=== PATIENT | female | born 1950 | race Hispanic/Latino ===

== ENCOUNTER 2023-04-24 08:15 | Emergency (ER) | payer MEDICARE ==
[~2023-04-24] VITALS: Ht 167.6 cm; Wt 84.4 kg
[~2023-04-24 08:15] MED LIST: AMIODARONE HCL200 MG PO; ATORVASTATIN CA20 MG PO; KEFLEX125 MG/5 M PO; METOPROLOL TART25 MG PO; OMEPRAZOLE40 MG PO
[2023-04-24] MEDS ORDERED: SODIUM CHLORIDE 0.9% 500ML 500 ML ONE (08:33)
[2023-04-24] MEDS: METOPROLOL TARTRATE INJ 1 MG/ML VIAL IV ONE (08:44)
[2023-04-24] MEDS: SODIUM CHLORIDE 0.9% 500ML 500 ML IV ONE (08:45)
[2023-04-24 08:53] LABS: BASOPHILS # (AUTO) 0.1 (0.0-0.1); BASOPHILS % 1.7 % (0.0-1.0); EOSINOPHILS # (AUTO) 0.3 (0.0-0.4); EOSINOPHILS % 4.8 % (0.0-6.0); HEMATOCRIT 37.5 % (34.2-44.1); LYMPHOCYTES # (AUTO) 2.9 (1.0-3.2); LYMPHOCYTES % 42.6 % (18.0-39.1); MEAN CORPUSCULAR HEMOGLOBIN 28.5 pg (28-32); MEAN CORPUSCULAR VOLUME 89.1 fL (81-99); MONOCYTES # (AUTO) 0.6 (0.2-0.8); MONOCYTES % 8.7 % (4.4-11.3); NEUTROPHILS # (AUTO) 2.9 (2.1-6.9); NEUTROPHILS % 42.1 % (38.7-80.0); PLATELET COUNT 299 x10e3/uL (140-360); RED BLOOD COUNT 4.21 x10e6/uL (3.6-5.1); RED CELL DISTRIBUTION WIDTH 11.8 % (11.7-14.4)
[2023-04-24 08:59] LABS: INR 1.22; PARTIAL THROMBOPLASTIN TIME 38.5 seconds (23.8-35.5); PROTHROMBIN TIME 15.7 seconds (11.9-14.5)
[2023-04-24 09:07] LABS: ALANINE AMINOTRANSFERASE 13 IU/L (0-55); ALBUMIN 3.5 g/dL (3.5-5.0); ALBUMIN/GLOBULIN RATIO 1.1 (0.8-2.0); ALKALINE PHOSPHATASE 83 IU/L (40-150); ANION GAP 14.6 mmol/L (8-16); BILIRUBIN,TOTAL 0.7 mg/dL (0.2-1.2); BLOOD UREA NITROGEN 17 mg/dL (7-26); BUN/CREATININE RATIO 13 (6-25); CALCIUM 8.8 mg/dL (8.4-10.2); CARBON DIOXIDE 22 mmol/L (22-29); CHLORIDE 105 mmol/L (98-107); CREATININE, SERUM 1.31 mg/dL (0.57-1.11); EST GLOMERULAR FILTRATION RATE 43 ML/MIN (>=60); GLUCOSE 104 mg/dL (74-118); MAGNESIUM 1.9 MG/DL (1.3-2.1); POTASSIUM 4.6 mmol/L (3.5-5.1); SODIUM 137 mmol/L (136-145); TOTAL PROTEIN 6.6 g/dL (6.5-8.1)
[2023-04-24 09:27] LABS: THYROID STIMULATING HORMONE 4.687 uIU/mL (0.350-4.940)
[2023-04-24 09:30] LABS: TROPONIN I < 0.001 ng/mL (0-0.300)
[2023-04-24 09:58] VITALS: BP 117/65; PULSE 70; RESP 17; TEMP 97.9; O2SAT 100
== END 2023-04-24 09:59 | disposition home or self-care (01) ==
LOC: ER 08:24
DX: R42 Dizziness and giddiness (principal); I47.10 Supraventricular tachycardia, unspecified; N28.9 Disorder of kidney and ureter, unspecified; I10 Essential (primary) hypertension; I48.91 Unspecified atrial fibrillation; E78.5 Hyperlipidemia, unspecified; Z11.52 Encounter for screening for COVID-19; Z98.84 Bariatric surgery status
CPT/HCPCS: 36415; 71045; 80053; 83735; 84443; 84484; 85025; 85610; 85730; 93005; 99283; J7040; U0002